=== PATIENT | female | born 1950 | race Two or more races ===

== ENCOUNTER 2017-08-29 12:22 | Emergency (ER) | payer OTHER ==
[2017-08-29 13:03] LABS: BASOPHIL % 0.7 % (0-2); PLATELET COUNT 136 x10^3mcL (130-400)
[2017-08-29 13:04] LABS: RED CELL DISTRIBUTION WIDTH 15.2 % (11.5-14.5)
[2017-08-29 13:20] LABS: ALBUMIN 3.6 g/dL (3.4-5.0); ALKALINE PHOSPHATASE 103 U/L (46-116); ALT/SGPT 46 U/L (14-59); AST/SGOT 36 U/L (15-37); BILIRUBIN TOTAL 0.71 mg/dL (0.20-1.00); CALCIUM 9.1 mg/dL (8.5-10.1); CARBON DIOXIDE 27.7 mmol/L (21-32); CHLORIDE SERUM 104 mmol/L (98-107); CREATININE SERUM 0.8 mg/dL (0.6-1.0); GFR1 > 60 mL/min; GLUCOSE SERUM 133 mg/dL (74-106); SODIUM SERUM 142 mmol/L (136-145); TOTAL PROTEIN, SERUM 7.4 g/dL (6.4-8.2)
[2017-08-29] MEDS ORDERED: CARVEDILOL25 M1 PO (13:40)
[2017-08-29] MEDS ORDERED: VENTOLIN H0.09 MG/A1 (13:40)
[2017-08-29] MEDS ORDERED: CALCIUM500 M1 (13:41)
[2017-08-29] MEDS ORDERED: LOSARTAN POTASS1 TA6 PO (13:41)
[2017-08-29] MEDS ORDERED: ASPIR 8181 MG PO (13:42)
[2017-08-29] MEDS ORDERED: LIPITOR80 MG PO (13:42)
[2017-08-29] MEDS ORDERED: GOOD SENSE OMEP20 MG PO (13:44)
[2017-08-29] MEDS ORDERED: FISH OIL 1,0001 EAC1 (13:45)
[2017-08-29] MEDS ORDERED: FUROSEMIDE20 MG PO (13:45)
[2017-08-29] MEDS ORDERED: NOR5 PO (13:45)
[2017-08-29] MEDS ORDERED: NIT0.4 PO (13:45)
[2017-08-29 14:21] VITALS: BP 127/68
== END 2017-08-29 14:21 | disposition short-term general hospital (02) ==
LOC: ED 12:22
PROVIDERS: Emergency Medicine
DX: I24.9 Acute ischemic heart disease, unspecified (principal); I10 Essential (primary) hypertension; I44.7 Left bundle-branch block, unspecified; E78.5 Hyperlipidemia, unspecified
CPT/HCPCS: 36415; 83880; Q0092